=== PATIENT | female | born 1980 | race Caucasian/White ===

== ENCOUNTER 2017-08-06 14:09 | Emergency (ER) | payer SELFPAY | END 2017-08-06 17:38 | disposition left against medical advice (07) | LOC: FTE 14:09 | DX: Z53.21 Procedure and treatment not carried out due to patient leaving prior to being seen by health care provider (principal) ==

== ENCOUNTER 2017-09-17 23:49 | Emergency (ER) | payer SELFPAY | END 2017-09-18 03:20 | disposition left against medical advice (07) | LOC: FTE 23:49 | DX: Z53.21 Procedure and treatment not carried out due to patient leaving prior to being seen by health care provider (principal) ==

== ENCOUNTER 2018-08-29 01:59 | Emergency (ER) | payer SELFPAY | END 2018-08-29 03:29 | disposition left against medical advice (07) | LOC: FTE 01:59 | DX: Z53.21 Procedure and treatment not carried out due to patient leaving prior to being seen by health care provider (principal) ==